=== PATIENT | female | born 1980 | race Caucasian/White ===

== ENCOUNTER 2021-11-06 00:23 | Emergency (ER) | payer MEDICAID ==
[~2021-11-06] VITALS: Ht 160 cm; Wt 68.2 kg
[~2021-11-06 00:23] MED LIST: ALBU8HFA PO; IBUP-1051 PO; PHEN-786 PO
[2021-11-06 00:45] VITALS: BP 123/59
[2021-11-06] MEDS ORDERED: acetaminophen 325mg tablet PO ONE (02:10)
[2021-11-06] MEDS ORDERED: CLIN150C2 PO (02:18)
--- NOTE | 2021-11-06 02:34 | NUR ---
dressing applied to rt 2nd toe
== END 2021-11-06 02:36 | disposition home or self-care (01) ==
LOC: ER 00:24
DX: L03.031 Cellulitis of right toe (principal); M79.674 Pain in right toe(s); F17.200 Nicotine dependence, unspecified, uncomplicated; F15.90 Other stimulant use, unspecified, uncomplicated; Z87.442 Personal history of urinary calculi; Z87.440 Personal history of urinary (tract) infections; Z56.0 Unemployment, unspecified; Z79.2 Long term (current) use of antibiotics; Z79.899 Other long term (current) drug therapy
CPT/HCPCS: 10060; 73660; 99283

== ENCOUNTER 2024-11-20 10:11 | Emergency (ER) | payer MEDICAID ==
[~2024-11-20] VITALS: Ht 160 cm; Wt 70.0 kg
[2024-11-20 10:33] VITALS: BP 115/75; PULSE 83; RESP 18; O2SAT 98
--- NOTE | 2024-11-20 12:13 | Physician Documentation ---
History of Present Illness ~ Chief Complaint: Medical Clearance Stated Complaint: MED CLEARENCE Time Seen by MD: 10:43 Primary Medical Doctor: NONE Tetanus within 5 years?: No Medication Reconciliation Allergies: Coded Allergies: No Known Allergies (Unverified , 11/20/24) Scheduled Ibuprofen* (Motrin*), 800 MG PO TID Scheduled PRN Phenazopyridine Hcl (Pyridium tablet), 2 TAB PO Q8H PRN for dysuria albuterol inhaler (Pro-Air Inhaler), 1-2 PUFFS PO Q4H PRN for SOB or wheezing Past Medical History Past Medical History: Kidney Stones, UTI Past Surgical History: no surgical history Alcohol Use: None Drug Use: methamphetamine Occupation: unemployed Physical Exam Vital Signs: Temperature: 97.8, Source: Temporal, Heart Rate: 83, Respiratory Rate: 18, BP: 115/75, Pulse Oximetry: 98, Weight: 70.000 Physical Exam General: Alert, no apparent distress. Respiratory: Lungs clear, no respiratory distress. Cardiovascular: Regular rate and rhythm, no murmurs. Gastrointestinal: Soft, nontender, nondistended. Bowels sounds present. Neurologic: Oriented x4. Psychiatric: Normal mood and affect. Skin: Normal color, warm and dry. No edema, no ecchymosis. Progress Results/Orders Results/Orders Vital Signs 11/20/24 11/20/24 10:33 12:22 Temp 97.8 97.8 Pulse 83 Resp 18 B/P (MAP) 115/75 Pulse Ox 98 Medical Decision Making Findings Patient does not present in any acute withdrawal or under the influence of any substances per my interpretation of her physical exam and overall behavior. Clear her for recovery Differential Dx:Considerations: Include: Intoxication-Alcohol, Intoxication- Other drug, Personality disorder, Substance abuse disorder, Acute delirium, Closed head injury, Cervical spine injury, Skull fracture, Fracture(s), Abrasion, Contusion, Foreign body, Hematoma, Laceration, Alcohol withdrawl syndrom, Encephalopathy, Hepatitis, Medically stable, Other Departure Disposition: 01 HOME / SELF CARE / HOMELESS Impression: Primary Impression: General medical exam Condition: Stable Discharge Instructions: Medical Screening Exam Additional Instructions: Patient did not present with any signs of a intoxication, I do not see any reason not to medically clear her for recovery. Referrals: NO PRIMARY CARE PROVIDER (PCP) Education Educated regarding: diagnosis Signature Scribe Signature: rf Attestation: The note accurately reflects work and decisions made by me.Que Fontenot - ABBE 11/20/24 18:53 QUE FONTENOT NP Nov 20, 2024 12:13
[2024-11-20 12:22] VITALS: TEMP 97.8
== END 2024-11-20 12:24 | disposition home or self-care (01) ==
LOC: ER 10:11
DX: Z02.9 Encounter for administrative examinations, unspecified (principal); F15.90 Other stimulant use, unspecified, uncomplicated; Z79.899 Other long term (current) drug therapy; Z87.442 Personal history of urinary calculi; Z56.0 Unemployment, unspecified
CPT/HCPCS: 99281